=== PATIENT | female | born 1965 | race Native Hawaiian/Other Pacific Islander ===

== ENCOUNTER 2017-03-21 08:38 | Outpatient (CLI) | payer OTHER | END 2017-03-21 19:03 | disposition home or self-care (01) | LOC: MAMMO 08:38 | DX: Z12.31 Encounter for screening mammogram for malignant neoplasm of breast (principal) ==

== ENCOUNTER 2018-03-27 09:09 | Outpatient (CLI) | payer OTHER | END 2018-03-27 23:01 | disposition home or self-care (01) | LOC: MAMMO 09:09 | DX: Z12.31 Encounter for screening mammogram for malignant neoplasm of breast (principal) ==

== ENCOUNTER 2019-03-29 08:31 | Outpatient (CLI) | payer OTHER | END 2019-03-29 22:02 | disposition home or self-care (01) | LOC: MAMMO 08:31 | DX: Z12.31 Encounter for screening mammogram for malignant neoplasm of breast (principal) ==

== ENCOUNTER 2020-04-06 09:06 | Outpatient (CLI) | payer OTHER | END 2020-04-06 19:09 | disposition home or self-care (01) | LOC: MAMMO 09:06 | DX: Z13.820 Encounter for screening for osteoporosis (principal); Z12.31 Encounter for screening mammogram for malignant neoplasm of breast; M85.88 Other specified disorders of bone density and structure, other site ==

== ENCOUNTER 2021-04-08 08:35 | Outpatient (CLI) | payer OTHER | END 2021-04-08 19:22 | disposition home or self-care (01) | LOC: MAMMO 08:35 | PROVIDERS: ATTEND Obstetrics & Gynecology | DX: Z12.31 Encounter for screening mammogram for malignant neoplasm of breast (principal) ==

== ENCOUNTER 2022-04-27 08:30 | Outpatient (CLI) | payer OTHER | END 2022-04-27 20:39 | disposition home or self-care (01) | LOC: MAMMO 08:30 | PROVIDERS: ATTEND Obstetrics & Gynecology | DX: Z13.820 Encounter for screening for osteoporosis (principal); Z12.31 Encounter for screening mammogram for malignant neoplasm of breast; N95.8 Other specified menopausal and perimenopausal disorders ==